=== PATIENT | female | born 1985 | race Caucasian/White ===

== ENCOUNTER 2017-05-13 20:08 | Inpatient (IN) | payer BC ==
[2017-05-13 21:01] LABS: Hematocrit 37 % (35-47); Hemoglobin 12.1 g/dl (12.0-16.0); Mean Corpuscular HGB Conc 33 g/dl (31-36); Mean Corpuscular Hemoglobin 27 pg (27-31); Mean Corpuscular Volume 82 fL (80-97); Mean Platelet Volume 10 um3 (7.4-10.4); Platelet Count 194 10^3/ul (150-450); Red Blood Count 4.49 10^6/ul (4.0-5.4); Red Cell Distribution Width 14 % (10.5-15); White Blood Count 12.1 10^3/ul (3.5-10.8)
[2017-05-13] MEDS ORDERED: OBEPIDURAL* 0 ML EPIDURAL ONE ×2 (21:09→21:11)
[2017-05-13] MEDS ORDERED: fentaNYL* 50 MCG/ML 2 ML VIAL (100 MCG VIAL) ONE (21:23)
[2017-05-13] MEDS ORDERED: Sodium Citrate/Citric Acid* 15 ML UDC PO PRN (21:57)
[2017-05-13] MEDS ORDERED: Famotidine TAB* 20 MG PO PRN (21:57)
[2017-05-13] MEDS ORDERED: EPHEDrine (Pressors)* 50 MG/ML VIAL IV PUSH PRN ×2 (21:57)
[2017-05-13] MEDS ORDERED: Phenylephrine IV* 40 MCG/ML 10 ML SYRINGE IV PUSH PRN ×2 (21:57)
[2017-05-13] MEDS ORDERED: Hetastarch in NS* 500 ML IV PRN (21:57)
[2017-05-13] MEDS ORDERED: OBEPIDURAL* 250 ML EPIDURAL SCH (22:00)
[2017-05-13] MEDS ORDERED: Dibucaine 1% 28.35 GM TUBE PR PRN (23:19)
[2017-05-13] MEDS ORDERED: Glycerin ADULT SUPP PR PRN (23:19)
[2017-05-13] MEDS ORDERED: Acetaminophen TAB* 325 MG PO PRN (23:19)
[2017-05-13] MEDS ORDERED: Witch Hazel PAD* JAR TOPICAL PRN (23:19)
[2017-05-13] MEDS ORDERED: OXYTOCIN* 10 UNITS/ML 1 ML VIAL ONE (23:41)
[2017-05-13] MEDS ORDERED: Oxytocin in LR* 20 UNITS/1,000 ML BAG IVPB SCH (23:45)
[2017-05-14] MEDS: Ibuprofen TAB* 600 MG PO PRN ×4 (03:24→21:43)
[2017-05-14 06:36] LABS: ABS Basophils 0.1 10^3/ul (0-0.2); ABS Eosinophils 0 10^3/ul (0-0.6); ABS Lymphocytes 2.3 10^3/ul (1.0-4.8); ABS Neutrophils 16.2 10^3/ul (1.5-7.7); ABS Nucleated RBC 0 10^3/ul; Eosinophil % 0 % (0-6); Hematocrit 28 % (35-47); Hemoglobin 9.3 g/dl (12.0-16.0); Lymphocyte % 11.6 % (25-47); Mean Corpuscular HGB Conc 33 g/dl (31-36); Mean Corpuscular Hemoglobin 27 pg (27-31); Mean Corpuscular Volume 82 fL (80-97); Mean Platelet Volume 10 um3 (7.4-10.4); Nucleated Red Blood Cells % 0; Platelet Count 174 10^3/ul (150-450); Red Blood Count 3.42 10^6/ul (4.0-5.4); Red Cell Distribution Width 15 % (10.5-15); White Blood Count 19.6 10^3/ul (3.5-10.8)
[2017-05-14] MEDS ORDERED: Simethicone TAB* 80 MG TAB.CHEW PO SCH (08:30)
[2017-05-14] MEDS: Docusate CAP* 100 MG PO SCH ×3 (09:39→21:43)
[2017-05-14] MEDS ORDERED: Ferrous Gluconate TAB* 324 MG TAB PO SCH (21:00)
[2017-05-14] MEDS ORDERED: Witch Hazel PAD* JAR ONE (21:45)
[2017-05-15] MEDS: Ibuprofen TAB* 600 MG PO PRN ×2 (04:05→10:10)
[2017-05-15 08:53] VITALS: BP 114/66
[2017-05-15] MEDS: Docusate CAP* 100 MG PO SCH (10:10)
== END 2017-05-15 15:32 | disposition home or self-care (01) | DRG 560 ==
LOC: MCHOBOUT 20:08 → MCHOB 20:49
PROVIDERS: ADMIT Obstetrics & Gynecology; ATTEND Obstetrics & Gynecology
PROC: 10E0XZZ Delivery of Products of Conception, External Approach (ICD-10-PCS; principal; 2017-05-13)
PROC: 0KQM0ZZ Repair Perineum Muscle, Open Approach (ICD-10-PCS; 2017-05-13)
PROC: 4A1HX4Z Monitoring of Products of Conception, Cardiac Electrical Activity, External Approach (ICD-10-PCS; 2017-05-13)
DX: O34.219 Maternal care for unspecified type scar from previous cesarean delivery (principal); O70.1 Second degree perineal laceration during delivery; Z37.0 Single live birth; O77.0 Labor and delivery complicated by meconium in amniotic fluid; O90.81 Anemia of the puerperium; Z88.0 Allergy status to penicillin; Z88.2 Allergy status to sulfonamides; Z3A.38 38 weeks gestation of pregnancy
CPT/HCPCS: 36415; 85025; 85027; 86850; 86900; 86901; A9270-GY; J2590; J3010

== ENCOUNTER 2017-08-19 18:19 | Emergency (ER) | payer BC ==
[2017-08-19] MEDS ORDERED: Rabies Immune Globulin 10 ML* 150 UNIT/ML VIAL IM ONE (20:12)
[2017-08-19] MEDS ORDERED: Rabies Vaccine (RabAvert)* 2.5 UNITS VIAL IM ONE (20:14)
--- NOTE | 2017-08-19 20:24 | ED ---
Bite Injury/Animal - HPI Summary HPI Summary: Patient and woke up this morning with live bat in the room. No known history of bite. PCP sent family for rabies Ig and vaccination. Denies rash, fever, cough, sore throat, CP, SOB, N/V/V abdominal pain, change in urinary BM. Tetanus up-to-date. Rabies vaccination status unknown - History of Current Complaint Chief Complaint: EDGeneral Stated Complaint: BAT EXPOSURE Time Seen by Provider: 08/19/17 18:51 Hx Obtained From: Patient Onset of Injury: Happened hours ago Type of Bite: Animal Has Animal Been Immunized?: Unknown Pain Intensity: 0 - Allergies/Home Medications Allergies/Adverse Reactions: Allergies Allergy/AdvReac Type Severity Reaction Status Date / Time iron Allergy Rash Verified 08/19/17 18:32 penicillin G Allergy Rash Verified 08/19/17 18:32 Home Medications: Home Medications NK [No Home Medications Reported] 08/19/17 [History Confirmed 08/19/17] PMH/Surg Hx/FS Hx/Imm Hx - Immunization History Immunizations Up to Date: Yes Infectious Disease History: No Infectious Disease History: Denies: Traveled Outside the [place] in Last 30 Days - Social History Alcohol Use: Weekly Substance Use Type: Reports: None Smoking Status (MU): Never Smoked Tobacco Have You Smoked in the Last Year: No Review of Systems Constitutional: Negative Eyes: Negative ENT: Negative Cardiovascular: Negative Respiratory: Negative Gastrointestinal: Negative Genitourinary: Negative Musculoskeletal: Negative Skin: Negative Neurological: Negative Psychological: Normal All Other Systems Reviewed And Are Negative: Yes Physical Exam - Summary Physical Exam Summary: No rash or wound noted. No apparent distress, has no other complaints. Triage Information Reviewed: Yes Vital Signs On Initial Exam: Initial Vitals Temp Pulse Resp BP Pulse Ox 98.3 F 64 14 125/73 99 08/19/17 18:30 08/19/17 18:30 08/19/17 18:30 08/19/17 18:30 08/19/17 18:30 Vital Signs Reviewed: Yes Appearance: Positive: Well-Appearing Skin: Positive: Warm Head/Face: Positive: Normal Head/Face Inspection Eyes: Positive: Normal ENT: Positive: Normal ENT inspection Neck: Positive: Supple Respiratory/Lung Sounds: Positive: Clear to Auscultation Cardiovascular: Positive: Normal Abdomen Description: Positive: Nontender Musculoskeletal: Positive: Normal Neurological: Positive: Normal Psychiatric: Positive: Normal AVPU Assessment: Alert - [place] Coma Scale Best Eye Response: 4 - Spontaneous Best Motor Response: 6 - Obeys Commands Best Verbal Response: 5 - Oriented Coma Scale Total: 15 Diagnostics - Vital Signs Vital Signs Temp Pulse Resp BP Pulse Ox 08/19/17 18:30 98.3 F 64 14 125/73 99 - Laboratory Lab Statement: Any lab studies that have been ordered have been reviewed, and results considered in the medical decision making process. Bite Injury Course/Dx - Course Course Of Treatment: D[facility] patient and family with [facility] at [facility] who recommended immunoglobulin and vaccine for mom and dad and bruno (whose door was open). Stated it was not necessary vaccinate the youngest child as that bedroom door was closed. Patient will be called by health department tomorrow to arrange follow-up vaccinations. - Diagnoses Provider Diagnosis: Exposure to bat without known bite Discharge - Sign-Out/Discharge Documenting (check all that apply): Discharge/Admit/Transfer - Discharge Plan Condition: Stable Disposition: HOME Patient Education Materials: Rabies Vaccine (By injection), Rabies Immune Globulin (By injection), Rabies (ED) Referrals: Neris Alvarado MD [Primary Care Provider] - Additional Instructions: Follow-up with [facility] to arrange for following vaccinations on days 3, 7, 14. Return to the ED for any new or worsening symptoms - Billing Disposition and Condition Condition: STABLE Disposition: HOME
[2017-08-19 23:24] VITALS: BP 140/80
== END 2017-08-19 23:08 | disposition home or self-care (01) ==
LOC: ED 18:19
DX: Z20.3 Contact with and (suspected) exposure to rabies (principal)
CPT/HCPCS: 90375; 90471; 90675; 99281

== ENCOUNTER 2020-10-21 23:32 | Inpatient (IN) ==
[2020-10-22 00:35] LABS: Urine Benzodiazepine Screen None Detected (None Detect); Urine Opiates Screen None Detected (None Detect)
[2020-10-22 00:59] LABS: Urine Appearance Clear; Urine Bilirubin Negative (Negative); Urine Blood Negative (Negative); Urine Color Straw; Urine Glucose Negative (Negative); Urine Ketones 1+ (Negative); Urine Nitrite Negative (Negative); Urine Protein Negative (Negative); Urine Specific Gravity 1.009 (1.002-1.030); Urine Urobilinogen Negative (Negative)
[2020-10-22] MEDS ORDERED: Buffered Lidocaine 1% SYRIN 1 ml INTRADERM ONE (01:20)
[2020-10-22] MEDS ORDERED: Lactated Ringers 1000 ml BAG 1,000 ML IV ONE ×2 (01:20→10:04)
[2020-10-22] MEDS ORDERED: Lactated Ringers 1000 ml BAG 1,000 ML IV SCH ×3 (02:00→21:00)
[2020-10-22] MEDS ORDERED: OBEPIDURAL 250 ML EPIDURAL ONE (08:15)
[2020-10-22] MEDS ORDERED: Sodium Citrate/Citric Acid LIQ 15 ML UDC PO PRN (10:04)
[2020-10-22] MEDS ORDERED: Lactated Ringers 1000 ml BAG 500 ML IV PRN ×2 (10:04)
[2020-10-22] MEDS ORDERED: Phenylephrine 40 mcg/mL 10mL (400mcg) SYRINGE IV PUSH PRN ×2 (10:04)
[2020-10-22] MEDS ORDERED: OBEPIDURAL 250 ML EPIDURAL SCH (11:00)
[2020-10-22 11:28] LABS: Urine Appearance Clear; Urine Bilirubin Negative (Negative); Urine Blood Negative (Negative); Urine Color Yellow; Urine Glucose Negative (Negative); Urine Ketones 2+ (Negative); Urine Nitrite Negative (Negative); Urine Protein Negative (Negative); Urine Specific Gravity 1.013 (1.002-1.030); Urine Urobilinogen Negative (Negative)
[2020-10-22] MEDS ORDERED: Oxytocin in LR 20 UNITS/1,000 ML BAG IVPB SCH ×2 (12:00→21:00)
[2020-10-22] MEDS: Dibucaine 1% OINT 28.35 GM TUBE PR PRN (21:01)
[2020-10-22] MEDS: Witch Hazel PAD JAR TOPICAL PRN (21:02)
[2020-10-23 06:47] LABS: ABS Lymphocytes 1.8 10^3/ul (1.0-4.8); ABS Monocytes 0.9 10^3/ul (0-0.8); ABS Neutrophils 8.2 10^3/ul (1.5-7.7); Eosinophil % 0.1 %; Hematocrit 29 % (35-47); Hemoglobin 9.8 g/dL (12.0-16.0); Lymphocyte % 16.4 %; Mean Corpuscular HGB Conc 34 g/dL (31-36); Mean Corpuscular Hemoglobin 27 pg (27-31); Mean Corpuscular Volume 79 fL (80-97); Mean Platelet Volume 8.7 fL (7.4-10.4); Platelet Count 170 10^3/uL (150-450); Red Blood Count 3.62 10^6 /uL (3.70-4.87); Red Cell Distribution Width 15 % (10-15); White Blood Count 10.9 10^3/uL (3.5-10.8)
[2020-10-23] MEDS: Dibucaine 1% OINT 28.35 GM TUBE PR PRN (10:40)
[2020-10-24 08:22] VITALS: BP 116/71
[2020-10-24] MEDS: Dibucaine 1% OINT 28.35 GM TUBE PR PRN (09:35)
[2020-10-24] MEDS: Witch Hazel PAD JAR TOPICAL PRN (09:35)
== END 2020-10-24 12:30 | disposition home or self-care (01) | DRG 768 ==
LOC: MCHOBOUT 23:32 → MCHOB 10-22 01:45
PROVIDERS: ADMIT Obstetrics & Gynecology; ATTEND Obstetrics & Gynecology